=== PATIENT | male | born 1990 | race Caucasian/White ===

== ENCOUNTER 2021-06-16 17:12 | Emergency (ER) | payer OTHER ==
[2021-06-16] MEDS ORDERED: NORCO 5-325 TA1 EACH PO (20:03)
== END 2021-06-16 20:35 | disposition home or self-care (01) ==
LOC: FER 17:12
DX: S62.602A Fracture of unspecified phalanx of right middle finger, initial encounter for closed fracture (principal); S62.604A Fracture of unspecified phalanx of right ring finger, initial encounter for closed fracture; S81.011A Laceration without foreign body, right knee, initial encounter; S00.11XA Contusion of right eyelid and periocular area, initial encounter; S30.811A Abrasion of abdominal wall, initial encounter; S30.810A Abrasion of lower back and pelvis, initial encounter; F17.210 Nicotine dependence, cigarettes, uncomplicated; V03.90XA Pedestrian on foot injured in collision with car, pick-up truck or van, unspecified whether traffic or nontraffic accident, initial encounter; Y92.410 Unspecified street and highway as the place of occurrence of the external cause
CPT/HCPCS: 73130